=== PATIENT | female | born 1990 | race Two or more races ===

== ENCOUNTER 2018-01-18 12:56 | Emergency (ER) | payer MEDICAID ==
[2018-01-18] VITALS (14 sets, daily range): BP systolic 95–118; BP diastolic 45–76
[~2018-01-18] VITALS: Ht 162.6 cm; Wt 59.0 kg
[~2018-01-18 12:56] MED LIST: BENADRYL50 MG PO; DEPAKOTE250 MG ORAL; DEPAKOTE250 MG PO; IBUPROFEN600 MG PO; MACROBID100 MG ORAL; NORCO 5-325 TA1 EACH ORAL; SOMA350 MG PO; TRAMADOL HCL50 MG ORAL; ZYPREXA10 MG ORAL
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
[2018-01-18 13:21] LABS: EOSINOPHILS % (AUTO) 0.9 % (0.0-3.0); HEMATOCRIT 40.1 % (37.0-47.0); HEMOGLOBIN 13.7 G/DL (12.0-16.0); LYMPHOCYTES % (AUTO) 26.9 % (20.0-45.0); MEAN CORPUSCULAR VOLUME 93 FL (80-99); MONOCYTES % (AUTO) 6.5 % (1.0-10.0); NEUTROPHILS % (AUTO) 64.7 % (45.0-75.0); PLATELET COUNT 259 K/UL (150-450); RED BLOOD COUNT 4.29 M/UL (4.20-5.40); RED CELL DISTRIBUTION WIDTH 13.3 % (11.6-14.8); WHITE BLOOD COUNT 5.7 K/UL (4.8-10.8)
[2018-01-18 13:30] LABS: ANION GAP 13 mmol/L (5-15); BLOOD UREA NITROGEN 15 mg/dL (7-18); CALCIUM 9.1 MG/DL (8.5-10.1); CARBON DIOXIDE 22 MMOL/L (21-32); CHLORIDE 104 MMOL/L (98-107); CREATININE 0.9 MG/DL (0.55-1.30); POTASSIUM 3.3 MMOL/L (3.5-5.1); SODIUM 139 MMOL/L (136-145)
[2018-01-18 13:34] LABS: ALANINE AMINOTRANSFERASE 21 U/L (12-78); ALBUMIN 3.6 G/DL (3.4-5.0); ALBUMIN/GLOBULIN RATIO 0.9 (1.0-2.7); ALKALINE PHOSPHATASE 91 U/L (46-116); ASPARTATE AMINO TRANSFERASE 15 U/L (15-37); BILIRUBIN,TOTAL 0.4 MG/DL (0.2-1.0)
[2018-01-18] MEDS ORDERED: Haloperidol 5mg/ml Inj IM ONE (14:00)
[2018-01-18] MEDS ORDERED: DiphenhydrAMINE 50mg/ml Inj IM ONE (14:15)
--- NOTE | 2018-01-19 10:51 | Diagnostic Imaging Report ---
Indication: Shortness of breath Technique: One view of the chest Comparison: none Findings: Lungs and pleural spaces are clear. Heart size is normal Impression: No acute process
--- NOTE | 2018-01-19 10:53 | Diagnostic Imaging Report ---
Indication: Altered mental status Technique: Continuous helical CT scanning of the head was performed without intravenous contrast material. Axial and coronal 5 mm sections were generated. Radiation dose was minimized using automated exposure control Dose: Total Dose Length Product - DLP 1354.[address] Dose Index - CTDIvol(s) 70.38 mGy. Comparison: 09/10/2014 Findings: The ventricular system is normal in size and configuration. There is no shift of midline structures. No abnormal extra-axial fluid collections are noted. There is no evidence of intracerebral bleeding. No other abnormal high or low density areas are noted within the brain.. There is probably an empty sella. Normal tijerina-white differentiation. Visualized orbits and sinuses are unremarkable. The calvarium is intact . No significant interim change Impression: Normal CT scan of the head without contrast material. This agrees with the preliminary interpretation provided overnight by [facility]. The CT scanner at [facility] is accredited by the [employer] and the scans are performed using protocols designed to limit radiation exposure to as low as reasonably achievable to attain images of sufficient resolution adequate for diagnostic evaluation.
== END 2018-01-18 16:50 ==
LOC: EDBD 12:56 → EMR 13:30
DX: F15.10 Other stimulant abuse, uncomplicated (principal); F12.10 Cannabis abuse, uncomplicated; R45.1 Restlessness and agitation; R41.82 Altered mental status, unspecified; F20.9 Schizophrenia, unspecified; I10 Essential (primary) hypertension; J45.909 Unspecified asthma, uncomplicated; E11.9 Type 2 diabetes mellitus without complications; F43.10 Post-traumatic stress disorder, unspecified; Z88.0 Allergy status to penicillin; Z88.8 Allergy status to other drugs, medicaments and biological substances
CPT/HCPCS: 36415; 70450; 71045; 80053; 80307; 80329; 81025; 85025; 96372; 96374; 96375; 99284; J1200; J1630

== ENCOUNTER 2019-03-28 12:36 | Emergency (ER) | payer MEDICAID ==
[~2019-03-28] VITALS: Ht 167.6 cm; Wt 59.0 kg
[2019-03-28] MEDS ORDERED: KLONOPIN1 MG ORAL (12:53)
[2019-03-28] MEDS ORDERED: GABAPENTIN300 MG ORAL (12:53)
[2019-03-28] MEDS ORDERED: QUETIAPINE FUM200 MG ORAL (12:53)
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
[2019-03-28 13:05] VITALS: BP 103/66
--- NOTE | 2019-03-28 13:05 | NUR ---
ED Nurse Note: pt reports last known sz was two nights ago witnessed by boyfriend, pt reports she hasn't been taking seizure medication for two months, pt states she doesn't have time to go get prescription refilled. er provider aware of pt's condition.
--- NOTE | 2019-03-28 13:15 | NUR ---
ED Nurse Note: urine specimen obtained and sent.
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
[2019-03-28 13:47] LABS: APPEARANCE,URINE SLIGHTLY CLOUDY; BILIRUBIN, URINE NEGATIVE (NEGATIVE); GLUCOSE, URINE (UA) NEGATIVE (NEGATIVE); KETONES,URINE 1+ (NEGATIVE); LEUKOCYTE ESTERASE ,URINE 1+ (NEGATIVE); NITRITE,URINE POSITIVE (NEGATIVE); PH,URINE 5 (4.5-8.0); PROTEIN,URINE 1+ (NEGATIVE); UROBILINOGEN,URINE NORMAL MG/DL (0.0-1.0)
[2019-03-28 13:56] LABS: COLOR,URINE YELLOW
[2019-03-28] MEDS ORDERED: DEPAKOTE250 MG PO (14:50)
[2019-03-28] MEDS ORDERED: IBUPROFEN600 MG ORAL (14:50)
[2019-03-28] MEDS ORDERED: NITROFURANTOIN100 M2 ORAL (14:50)
[2019-03-28 14:59] VITALS: BP 111/71
--- NOTE | 2019-03-28 15:00 | NUR ---
ER DISCHARGE NOTE: Patient is cleared to be discharged per ERMD, pt is aox4, on room air, with stable vital signs. pt was given dc and prescription instructions, pt was able to verbalize understanding, pt id band removed. pt is able to ambulate with steady gait. pt took all belongings.
--- NOTE | 2019-03-29 09:08 | Diagnostic Imaging Report ---
Indications: Pain, trauma Technique: Spiral acquisitions obtained through the brain. Angled axial and coronal 5 x 5 mm slices were reconstructed. Total dose length product 1385.77 mGycm. CTDI vol(s) 70.38 mGy. Dose reduction achieved using automated exposure control Comparison: 01/18/2018 Findings: No acute intracranial hemorrhage or edema, mass effect, nor midline shift. Normal tijerina-white differentiation. Normal-sized ventricles and extra-axial CSF spaces. Visualized orbits are unremarkable. The sinuses are clear. Intact calvarium. Other than the soft tissue swelling, no significant interim change Impression: Evidence of minimal left periorbital soft tissue trauma Negative for acute intracranial bleed or mass effect This agrees with the preliminary interpretation provided overnight by [facility]. The CT scanner at [facility] is accredited by the [employer] and the scans are performed using protocols designed to limit radiation exposure to as low as reasonably achievable to attain images of sufficient resolution adequate for diagnostic evaluation.
--- NOTE | 2019-03-29 10:33 | Diagnostic Imaging Report ---
Indication: Trauma, pain Technique: 3 views of the left shoulder Comparison: none Findings: No acute fractures. No dislocations. The joint spaces are preserved. Impression: Negative
--- NOTE | 2019-03-29 10:34 | Diagnostic Imaging Report ---
Indication: Trauma, pain Technique: 2 views of the right ribs Comparison: none Findings: No acute fractures. No dislocations. Lungs and pleural spaces are clear. No pneumothorax. Impression: Negative
== END 2019-03-28 15:01 | disposition home or self-care (01) ==
LOC: EMR 14:09
DX: S00.93XA Contusion of unspecified part of head, initial encounter (principal); S40.012A Contusion of left shoulder, initial encounter; S20.219A Contusion of unspecified front wall of thorax, initial encounter; G40.909 Epilepsy, unspecified, not intractable, without status epilepticus; N39.0 Urinary tract infection, site not specified; F15.10 Other stimulant abuse, uncomplicated; J45.909 Unspecified asthma, uncomplicated; E11.9 Type 2 diabetes mellitus without complications; F20.0 Paranoid schizophrenia; F43.10 Post-traumatic stress disorder, unspecified; M41.9 Scoliosis, unspecified; M19.90 Unspecified osteoarthritis, unspecified site; Z88.0 Allergy status to penicillin; Z88.8 Allergy status to other drugs, medicaments and biological substances; V18.0XXA Pedal cycle driver injured in noncollision transport accident in nontraffic accident, initial encounter; Y92.9 Unspecified place or not applicable
CPT/HCPCS: 70450; 80307; 81001; 81025; 87086; 99284